=== PATIENT | male | born 1945 | race Caucasian/White ===

== ENCOUNTER 2017-05-21 20:49 | Emergency (ER) | payer MEDICARE ==
[~2017-05-21] VITALS: Ht 170.2 cm; Wt 67.3 kg
[2017-05-21] MEDS ORDERED: SOD CHLORIDE 0.9% 1,000 ML IV STA (20:54)
[2017-05-21] MEDS ORDERED: HYDROmorphONE 1 MG/ML SYG IV STA (20:54)
[2017-05-21] MEDS ORDERED: ONDANSETRON 4 MG INJ IV STA (20:54)
[2017-05-21 20:58] VITALS: Ht 170.2 cm; Wt 67.3 kg
[2017-05-21 21:38] LABS: ADD UMIC YES; UR AMORPHOUS CRYSTAL FEW /HPF (NONE SEEN); UR ASCORBIC ACID 40 mg/dL (NEGATIVE); UR BILIRUBIN (Dip) NEGATIVE (NEGATIVE); UR BLOOD (Dip) NEGATIVE (NEGATIVE); UR CLARITY CLOUDY (CLEAR); UR COLOR YELLOW (YELLOW); UR GLUCOSE (Dip) NEGATIVE (NEGATIVE); UR KETONES (Dip) NEGATIVE (NEGATIVE); UR LEUKOCYTE ESTERASE (Dip) NEGATIVE Leu/ul (NEGATIVE); UR NITRITE (Dip) NEGATIVE (NEGATIVE); UR RBC 0 /HPF (0-5); UR SPECIFIC GRAVITY (Dip) 1.017 (1.003-1.030); UR TOTAL PROTEIN (Dip) NEGATIVE (NEGATIVE); UR UROBILINOGEN (Dip) NEGATIVE (NEGATIVE)
[2017-05-21 21:43] LABS: BASOPHILS % 0.3 % (0.0-2.0); EOSINOPHILS % 0.3 % (0.0-7.0); HEMATOCRIT 40.1 % (42.0-52.0); HEMOGLOBIN 13.4 g/dl (14.0-18.0); LYMPHOCYTES # 1.6 10^3/ul (0.8-2.9); LYMPHOCYTES % 17.8 % (15.0-51.0); MEAN CORPUSCULAR HEMOGLOBIN 30.5 pg (29.0-33.0); MEAN CORPUSCULAR HGB CONC 33.4 g/dl (32.0-37.0); MEAN CORPUSCULAR VOLUME 91.3 fl (82.0-101.0); MEAN PLATELET VOLUME 11.5 fl (7.4-10.4); MONOCYTE # 0.9 10^3/ul (0.3-0.9); MONOCYTES % 9.6 % (0.0-11.0); NEUTROPHIL # 6.4 10^3/ul (1.6-7.5); NEUTROPHILS % 71.6 % (39.0-77.0); PLATELET COUNT 183 10^3/UL (140-415); RED BLOOD COUNT 4.39 10^6/ul (4.70-6.10); RED CELL DISTRIBUTION WIDTH 13.3 % (11.5-14.5)
[2017-05-21 21:56] LABS: ALANINE AMINOTRANSFERASE 47 IU/L (13-69); ALBUMIN 3.9 g/dl (3.3-4.9); ALBUMIN/GLOBULIN RATIO 1.25; ALKALINE PHOSPHATASE 91 IU/L (42-121); ANION GAP 16 (8-16); ASPARTATE AMINO TRANSFERASE 25 IU/L (15-46); BILIRUBIN,INDIRECT 0.3 mg/dl (0-1.1); BILIRUBIN,TOTAL 0.3 mg/dl (0.2-1.3); BLOOD UREA NITROGEN 19 mg/dl (7-20); CALCIUM 9.8 mg/dl (8.4-10.2); CARBON DIOXIDE 29 mmol/L (21-31); CHLORIDE 101 mmol/L (97-110); CREATININE 0.73 mg/dl (0.61-1.24); GLUCOSE 147 mg/dl (70-220); POTASSIUM 3.9 mmol/L (3.5-5.1); SODIUM 142 mmol/L (135-144)
[2017-05-21 22:10] LABS: TROPONIN-I < 0.012 ng/ml (0.00-0.12)
--- NOTE | 2017-05-21 22:25 | RADRPT ---
PROCEDURE: CT Abdomen and Pelvis without contrast. CLINICAL INDICATION: Abdominal pain. TECHNIQUE: A CT scan of the abdomen and pelvis was performed without intravenous contrast. Barber l and sagittal reformatted images were generated. Images were reviewed on a high-resolution PACS wor kstation. CTDIvol: 7.69 mGy. DLP: 449.25 mGy-cm. One or more of the following dose reduction techniques were used: - Automated exposure control. - Adjustment of the mA and/or kV according to patient size. - Use of iterative reconstruction technique. COMPARISON: None. FINDINGS: There are mild atelectatic changes in the lower lobes. Evaluation of the abdominal and pelvic viscera is limited by the lack of oral and intravenous contra st. The liver is unremarkable. The gallbladder is normal in appearance. The common bile duct is not dila devon. The spleen is not enlarged. No pancreatic lesion is identified and there is no pancreatic ducta l dilatation. The adrenal glands are unremarkable. The kidneys are normal in size. There is no perinephric fat stranding. No hydronephrosis is seen. No urinary stone is identified. There are multiple right renal cysts measuring up to 2.4 cm. A moderate right inguinal hernia contains a nonobstructed small bowel loop. The small and large bow el are normal in caliber. There is no bowel wall thickening. The appendix is not identified. The urinary bladder is unremarkable. The pelvic organs are within normal limits. No lymphadenopathy is identified. There is no ascites. No pneumoperitoneum is seen. There are mild a rterial calcifications. No suspicious osseous lesion is idenitified. IMPRESSION: 1. No inflammation, mass, or lymphadenopathy. 2. No obstructive uropathy or urinary stone. 3. The appendix is not identified. 4. Moderate right inguinal hernia containing nonobstructed small bowel loop. 5. Mild atherosclerotic arterial calcifications RPTAT: HTAR .Case Lim MD, Date Time Electronically viewed and signed by .Case Lim MD, MD on 05/21/2017 22:25 .R/
[2017-05-21] MEDS ORDERED: HYDR-902 PO (22:41)
[2017-05-21] MEDS ORDERED: ONDA4TAB14 PO (22:41)
--- NOTE | 2017-05-21 22:42 | ERD ---
ER Documentation Chief Complaint Date/Time DATE: 05/21/17 TIME: 22:42 Chief Complaint BIBA FOR N/V WITH SHARP DIFFUSE ABD PAIN HPI Patient is a 72-year-old male with hypertension who presents with abdominal pain. The patient said that he abdominal pain which started 1 hour prior. It was constant and diffuse pain. He has had no treatment as of yet. He has nausea and vomiting. He denies any fevers. He was brought in by ambulance. ROS All systems reviewed and are negative except as per history of present illness. Medications Home Meds Active Scripts Ondansetron (Ondansetron Odt) 4 Mg Tab.rapdis, 4 MG PO Q6H Y for NAUSEA AND/OR VOMITING, #30 TAB Prov:ARUN ZIMMERMAN MD 05/21/17 Hydrocodone/Acetaminophen ([place] 10-325 Tablet) 1 Each Tablet, 1 TAB PO Q6H Y for PAIN, #7 TAB Prov:ARUN ZIMMERMAN MD 05/21/17 PMhx/Soc History of Surgery: Yes (L4 L5 LAMINECTOMY, APPENDECTOMY, HAND SX) Anesthesia Reaction: No Hx Neurological Disorder: No Hx Respiratory Disorders: No Hx Cardiac Disorders: Yes (HTN, AFIB) Hx Psychiatric Problems: No Hx Miscellaneous Medical Probl: No Smoking Status: Never smoker FmHx Family History: No diabetes Physical Exam Vitals Vital Signs Date Time Temp Pulse Resp B/P Pulse Ox O2 Delivery O2 Flow Rate FiO2 05/21/17 23:54 98.1 82 20 122/69 100 Room Air 05/21/17 23:18 98.4 82 20 114/66 98 Room Air 05/21/17 20:58 99.0 92 20 122/67 98 Physical Exam Const: Moderate distress secondary to pain Head: Atraumatic Eyes: Normal Conjunctiva ENT: Normal External Ears, Nose and Mouth. Neck: Full range of motion..~ No meningismus. Resp: Clear to auscultation bilaterally Cardio: Regular rate and rhythm, no murmurs Abd: Soft, epigastric tenderness to palpation without rebound or guarding Skin: No petechiae or rashes Back: No midline or flank tenderness Ext: No cyanosis, or edema Neur: Awake and alert Psych: Normal Mood and Affect Result Diagram: 05/21/17211405/21/172114 Results 24 hrs Laboratory Tests Test 05/21/17 21:15 White Blood Count 9.010^3/ul Red Blood Count 4.3910^6/ul Hemoglobin 13.4g/dl Hematocrit 40.1% Mean Corpuscular Volume 91.3fl Mean Corpuscular Hemoglobin 30.5pg Mean Corpuscular Hemoglobin Concent 33.4g/dl Red Cell Distribution Width 13.3% Platelet Count 83290^3/UL Mean Platelet Volume 11.5fl Neutrophils % 71.6% Lymphocytes % 17.8% Monocytes % 9.6% Eosinophils % 0.3% Basophils % 0.3% Nucleated Red Blood Cells % 0.0/100WBC Neutrophils # 6.410^3/ul Lymphocytes # 1.610^3/ul Monocytes # 0.910^3/ul Eosinophils # 0.010^3/ul Basophils # 0.010^3/ul Nucleated Red Blood Cells # 0.010^3/ul Urine Color YELLOW Urine Clarity CLOUDY Urine pH 7.0 Urine Specific [place] 1.017 Urine Ketones NEGATIVEmg/dL Urine Nitrite NEGATIVEmg/dL Urine Bilirubin NEGATIVEmg/dL Urine Urobilinogen NEGATIVEmg/dL Urine Leukocyte Esterase NEGATIVELeu/ul Urine Microscopic RBC 0/HPF Urine Microscopic WBC 0/HPF Urine Amorphous Crystals FEW/HPF Urine Hemoglobin NEGATIVEmg/dL Urine Glucose NEGATIVEmg/dL Urine Total Protein NEGATIVEmg/dl Sodium Level 142mmol/L Potassium Level 3.9mmol/L Chloride Level 101mmol/L Carbon Dioxide Level 29mmol/L Anion Gap 16 Blood Urea Nitrogen 19mg/dl Creatinine 0.73mg/dl Glucose Level 147mg/dl Calcium Level 9.8mg/dl Total Bilirubin 0.3mg/dl Direct Bilirubin 0.00mg/dl Indirect Bilirubin 0.3mg/dl Aspartate Amino Transf (AST/SGOT) 25IU/L Alanine Aminotransferase (ALT/SGPT) 47IU/L Alkaline Phosphatase 91IU/L Troponin I < 0.012ng/ml Total Protein 7.0g/dl Albumin 3.9g/dl Globulin 3.10g/dl Albumin/Globulin Ratio 1.25 Lipase 19U/L Current Medications Medications (Trade) Dose Ordered Sig/Aruna Route PRN Reason Start Time Stop Time Status Last Admin Dose Admin Sodium Chloride (NS) 1,000 ml @ 1,000 mls/hr Q1H STAT IV 05/21/17 20:54 05/21/17 21:53 DC 05/21/17 21:15 Hydromorphone HCl (Dilaudid) 1 mg ONCE STAT IV 05/21/17 20:54 05/21/17 20:55 DC 05/21/17 21:13 Ondansetron HCl (Zofran Inj) 4 mg ONCE STAT IV 05/21/17 20:54 05/21/17 20:55 DC 05/21/17 21:13 Procedures/MDM EKG read by me: Rate/Rhythm: Atrial flutter with a ventricular rate of 86 Intervals: Normal Impression: Atrial flutter without ischemia CT scan shows no acute surgical process per radiology. Patient is a 72-year-old male with hypertension who presents with abdominal pain. He had a full workup including laboratory studies, EKG, and CT scan of the abdomen and pelvis. His EKG shows atrial flutter which has a history of. The CT scan shows no sign of surgical process at this time. Laboratory studies are basically normal. He has anemia with a hemoglobin of 13.4 but does not require transfusion. I doubt appendicitis, cholestatic, pancreatitis, or bowel obstruction. The patient feels better after treatment with pain medication, Zofran, and normal saline fluid bolus. The patient will be discharged home and can follow-up with his primary doctor within 24 hours for reevaluation. He will be given a prescription for [place] and Zofran for systematic relief. Departure Diagnosis: Primary Impression: Abdominal pain Abdominal location: generalized Qualified Code: R10.84 - Generalized abdominal pain Additional Impressions: Atrial flutter Atrial flutter type: unspecified Qualified Code: I48.92 - Atrial flutter, unspecified type Nausea and vomiting Vomiting type: unspecified Vomiting Intractability: non-intractable Qualified Code: R11.2 - Non-intractable vomiting with nausea, unspecified vomiting type Condition: Fair Patient Instructions: Abdominal Pain, Nausea and Vomiting-Adult, Atrial Flutter Referrals: Your doctor Additional Instructions: FOLLOW UP WITH YOUR PRIMARY CARE PHYSICIAN TOMORROW.Return to this facility if you are not improving as expected. ARUN ZIMMERMAN MD May 21, 2017 22:42
[2017-05-21 23:54] VITALS: BP 122/69; PULSE 82; RESP 20; TEMP 98.1
== END 2017-05-21 23:54 | disposition home or self-care (01) ==
LOC: E/R 20:49
DX: R10.84 Generalized abdominal pain (principal); I48.92 Unspecified atrial flutter; I10 Essential (primary) hypertension
CPT/HCPCS: 74176; 80053; 81001; 83690; 84484; 85025; 93005; J1170; J2405; J7030; 36415; 96374; 96375